=== PATIENT | female | born 1980 | race Caucasian/White ===

== ENCOUNTER 2021-01-18 06:03 | Emergency (ER) | payer MEDICAID ==
[~2021-01-18] VITALS: Ht 162.6 cm; Wt 62.1 kg
[2021-01-18 06:11] VITALS: Ht 162.6 cm; Wt 62.1 kg
[2021-01-18] MEDS ORDERED: BACTRIM DS1 TAB PO (06:27)
[2021-01-18 06:43] VITALS: BP 128/90
== END 2021-01-18 06:43 | disposition home or self-care (01) ==
LOC: ED 06:03
DX: L03.011 Cellulitis of right finger (principal); Z88.0 Allergy status to penicillin